=== PATIENT | male | born 1990 | race Caucasian/White ===

== ENCOUNTER 2018-04-28 22:08 | Emergency (ER) | payer OTHER ==
[2018-04-28] MEDS ORDERED: IBUPROFEN 600 MG TAB PO ONE (22:15)
[2018-04-28] MEDS ORDERED: LIDOCAINE 4%/MENTHOL 1% PATCH TD ONE (22:15)
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
[2018-04-28 22:27] VITALS: BP 158/100
== END 2018-04-28 23:10 ==
DX: S39.012A Strain of muscle, fascia and tendon of lower back, initial encounter (principal); V47.5XXA Car driver injured in collision with fixed or stationary object in traffic accident, initial encounter; Y92.410 Unspecified street and highway as the place of occurrence of the external cause; Y93.9 Activity, unspecified; Y99.9 Unspecified external cause status